=== PATIENT | female | born 1935 | race Caucasian/White ===

== ENCOUNTER → 2021-06-23 | Outpatient (CLI) | payer OTHER | END | disposition home or self-care (01) | LOC: EDSEX 08:00 → RAH 08:22 | PROVIDERS: ATTEND Internal Medicine | DX: I87.2 Venous insufficiency (chronic) (peripheral) (principal); R79.89 Other specified abnormal findings of blood chemistry | CPT/HCPCS: 93970 ==

== ENCOUNTER → 2024-03-02 | Outpatient (CLI) | payer OTHER, MEDICARE | END | disposition home or self-care (01) | LOC: RAH 08:01 | PROVIDERS: ATTEND Internal Medicine | DX: I70.222 Atherosclerosis of native arteries of extremities with rest pain, left leg (principal); I77.1 Stricture of artery | CPT/HCPCS: 93925 ==